=== PATIENT | male | born 1990 | race Caucasian/White ===

== ENCOUNTER 2019-10-13 11:44 | Emergency (ER) | payer SELFPAY ==
[~2019-10-13] VITALS: Ht 190.5 cm; Wt 90.9 kg
[2019-10-13 11:56] VITALS: Ht 190.5 cm; Wt 90.9 kg
[2019-10-13] MEDS ORDERED: IBUPROFEN800 MG PO (11:58)
[2019-10-13] MEDS ORDERED: LYRICA100 MG PO (11:58)
[2019-10-13] MEDS ORDERED: SEROQUEL400 MG PO (11:58)
[2019-10-13] MEDS ORDERED: PREDNISONE50 MG PO (12:05)
[2019-10-13] MEDS ORDERED: ULTRAM50 MG PO (12:22)
[2019-10-13 12:51] VITALS: BP 124/73
== END 2019-10-13 12:51 | disposition home or self-care (01) ==
LOC: D.ER 11:44
DX: M06.9 Rheumatoid arthritis, unspecified (principal); F31.9 Bipolar disorder, unspecified; M79.642 Pain in left hand; M79.641 Pain in right hand; M25.562 Pain in left knee; M25.561 Pain in right knee

== ENCOUNTER 2020-01-08 12:23 | Emergency (ER) | payer MEDICAID ==
[~2020-01-08] VITALS: Ht 190.5 cm; Wt 104.5 kg
[~2020-01-08 12:23] MED LIST: IBUPROFEN800 MG PO; LYRICA100 MG PO; PREDNISONE50 MG PO; SEROQUEL400 MG PO; ULTRAM50 MG PO
[2020-01-08 12:28] VITALS: BP 126/99; Ht 190.5 cm; Wt 104.5 kg
[2020-01-08 13:28] LABS: BASOPHILS 0.1 % (0-2); EOSINOPHILS 1.5 % (0-7); HEMATOCRIT 50.2 % (42.0-54.0); HEMOGLOBIN 17.4 g/dL (13.5-17.5); IMMATURE GRANULOCYTES 0.1 % (0-5); LYMPHOCYTES 26.2 % (15-50); MCH 32.3 pg (26.0-34.0); MCHC 34.7 g/dL (31.0-37.0); MCV 93.1 fL (80.0-100.0); MEAN PLATELET VOLUME 9.9 fL (7.4-10.4); MONOCYTES 8.3 % (2-11); NEUTROPHILS 63.8 % (40-80); PLATELET COUNT 198 10x3/uL (130-400); RBC 5.39 10x6/uL (4.20-6.10); RDW 13.7 % (11.5-14.5); WBC 8.8 10x3/uL (4.8-10.8)
[2020-01-08 13:33] LABS: CALC OSMOLALITY 279 mosm/kg (275-300); CALCIUM 9.3 mg/dL (8.5-10.1); CARBON DIOXIDE 22.9 mmol/L (21.0-32.0); CHLORIDE - SERUM 106 mmol/L (98-107); CREATININE - SERUM 0.8 mg/dL (0.6-1.3); GLUCOSE 95 mg/dL (74-106); POTASSIUM - SERUM 4.7 mmol/L (3.5-5.1); SODIUM 140 mmol/L (136-145); UREA NITROGEN 14 mg/dL (7-18); eGFR NON AFRICAN AMERICAN > 90 mL/min (90-120)
[2020-01-08 13:38] LABS: ALBUMIN 4.4 g/dL (3.4-5.0); ALKALINE PHOSPHATASE 80 U/L (30-120); ALT (SGPT) 71 U/L (10-68); BILIRUBIN - TOTAL 0.39 mg/dL (0.2-1.3); PROTEIN - SERUM 7.9 g/dL (6.4-8.2)
[2020-01-08 13:47] LABS: C-REACTIVE PROTEIN < 0.2 mg/dL (0.0-0.9)
[2020-01-08 14:27] LABS: ERYTHROCYTE SEDIMENTATION RATE 1 mm/hr (0-15)
[2020-01-08 14:57] LABS: UDS - AMPHET NEGATIVE QUAL (NEGATIVE); UDS - BARB NEGATIVE QUAL (NEGATIVE); UDS - BENZO NEGATIVE QUAL (NEGATIVE); UDS - COCAINE NEGATIVE QUAL (NEGATIVE); UDS - OPIATE NEGATIVE QUAL (NEGATIVE); UDS - PCP NEGATIVE QUAL (NEGATIVE); UDS - THC NEGATIVE QUAL (NEGATIVE)
[2020-01-08 15:13] LABS: BILIRUBIN NEGATIVE (NEGATIVE); GLUCOSE NEGATIVE (NEGATIVE); KETONE NEGATIVE (NEGATIVE); NITRITE NEGATIVE (NEGATIVE); UROBILINOGEN NORMAL (NORMAL)
[2020-01-08 15:14] LABS: BACTERIA FEW /hpf (NEGATIVE); RED CELLS - URINE 0-5 /hpf (0-5); WHITE CELLS - URINE OCC /hpf (NEGATIVE)
== END 2020-01-08 15:43 | disposition home or self-care (01) ==
LOC: D.ER 12:23
PROVIDERS: Family Medicine
DX: M06.9 Rheumatoid arthritis, unspecified (principal)